=== PATIENT | female | born 1965 | race Caucasian/White ===

== ENCOUNTER 2020-01-16 21:34 | Emergency (ER) | payer OTHER, SELFPAY ==
--- NOTE | ~2020-01-16 | XR_ITS ---
EXAMINATION: XR knee RT 3V EXAM DATE: 01/16/2020 21:55 INDICATION: Swelling for one day, right knee. TECHNIQUE: Three projections of the right knee. Comparison is made to prior examination from 2. FINDINGS: No evidence osteochondral defect or joint body in the right knee joint. There are no acut e fractures or dislocations identified. There is no subcutaneous gas. Small to moderate-sized joint effusion. 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 There are no radiopaque foreign bod ies. IMPRESSION: 1. Small to moderate right knee joint effusion. 2. Mild osteoarthritis. Reviewed, dictated and finalized at location A.
[2020-01-16 21:36] VITALS: BP 133/79; PULSE 95; RESP 16; TEMP 36.6; O2SAT 100
--- NOTE | 2020-01-16 21:44 | ED.EXTPRO ---
HPI - Extremity Problem General Chief complaint: Extremity Problem,Nontraumatic Stated complaint: right leg swelling Time Seen by Provider: 01/16/20 21:39 History of Present Illness HPI Narrative: Right knee swelling since this afternoon. No pain at rest. Painful with ambulation. Feels paresthesia below the knee. No injury. She does have a h/o undiagnosed knee pain. Related Data Home Medications Medication Instructions Recorded Confirmed cetirizine [Zyrtec] 10 mg PO DAILY 06/27/19 06/27/19 guaifenesin [Mucinex] 1,200 mg PO Q12H 06/27/19 06/27/19 montelukast [Singulair] 10 mg PO HS 06/27/19 06/27/19 pseudoephedrine HCl [Sudafed 12 120 mg PO Q12H PRN 06/27/19 06/27/19 Hour] Allergies Allergy/AdvReac Type Severity Reaction Status Date / Time No Known Allergies Allergy Verified 01/16/20 21:45 Review of Systems Review of Systems: All systems reviewed & are unremarkable except as noted in HPI and below PMFSH Family History Family History Other Diabetes mellitus Family history of arthritis Family history of malignant neoplasm Hypertension Social History Social History Alcohol intake: current Gender identity (if verbalized by the patient): Female Exam Const: General: no acute distress and alert Nutritional Appearance: obese Orientation/consciousness: patient oriented x3 HENMT: Head: normal to inspection Resp: Effort & Inspection: normal respiratory effort Skin: General skin exam: normal color Rashes: no rashes Wounds: no wounds Neuro: General: patient oriented x3 Speech: normal speech Extrem: Other: Anterior knee swelling on the right with ballotable effusion Course Vital Signs Vital signs: Vital Signs Temperature 36.6 C 01/16/20 21:36 Pulse Rate 95 01/16/20 21:36 Respiratory Rate 16 01/16/20 21:36 Blood Pressure 133/79 01/16/20 21:36 Pulse Oximetry 100 01/16/20 21:36 Temperature 36.6 C 01/16/20 21:36 Pulse Rate 95 01/16/20 21:36 Respiratory Rate 16 01/16/20 21:36 Blood Pressure 133/79 01/16/20 21:36 Pulse Oximetry 100 01/16/20 21:36 MDM - Extremity (Nontraumatic) MDM Narrative Medical decision making narrative: No sign of infection or inflammation. Moderate effusion present on exam and x-ray. Discharge Plan Discharge Clinical Impression: Effusion of right knee joint Patient Disposition: Home, Self-Care Condition: Stable Instructions: Swollen Knee Joint (ED) Prescriptions: No Action cetirizine [Zyrtec] 10 mg Tablet 10 mg PO DAILY RF: 0 pseudoephedrine HCl [Sudafed 12 Hour] 120 mg Tablet Extended Release 120 mg PO Q12H PRN (Reason: Congestion) RF: 0 montelukast [Singulair] 10 mg Tablet 10 mg PO HS RF: 0 Mucinex 1,200 mg Tablet Extended Release 12hr 1,200 mg PO Q12H RF: 0 amoxicillin-pot clavulanate 875-125 mg tablet 1 tablet PO Q12H Qty: 20 RF: 0 Interventions: Discharge Disposition Last Done: 01/16/20 22:22 IV Stop Time Documented Last Done: 01/16/20 22:23 Follow-up/Referrals: VAUXHALL, [Primary Care Provider] - Discharge Date/Time: 01/16/20 22:23
== END 2020-01-16 22:23 | disposition home or self-care (01) ==
PROVIDERS: Emergency Provider Emergency Medicine
DX: M25.461 Effusion, right knee (principal)
CPT/HCPCS: 73562; 99283

== ENCOUNTER 2020-11-01 12:35 | Emergency (ER) | payer OTHER, SELFPAY ==
[2020-11-01 12:35] VITALS: BP 120/76; PULSE 97; RESP 17; TEMP 36.1; O2SAT 98
--- NOTE | 2020-11-01 12:48 | ED.UPPEXIN ---
HPI - Extremity Injury (Upper) General Chief Complaint: Ear Stated Complaint: Sinus,Ear Time Seen by Provider: 11/01/20 12:35 History of Present Illness HPI narrative: 55-year-old female presents to the [facility] with complaints of sinus pain, pressure and bilateral ear pain. Also reports fevers, congestion, pain on the right ear. Has taken Mucinex and Sudafed stated it worked the first couple weeks however it stopped working. Has a history of seasonal allergies. Patient is a smoker. Also reports a dry cough intermittently. States symptoms have been going on since early October. Has a history of sinus infections and bronchitis Reports that she has had the vaccine on October 14 Covid. Symptoms did start prior to it. States that she has had Covid in June. Related Data Home Medications Medication Instructions Recorded Confirmed cetirizine [Zyrtec] 10 mg PO DAILY 06/27/19 11/01/20 montelukast [Singulair] 10 mg PO HS 06/27/19 11/01/20 Allergies Allergy/AdvReac Type Severity Reaction Status Date / Time No Known Allergies Allergy Verified 11/01/20 12:38 Review of Systems Review of Systems: All systems reviewed & are unremarkable except as noted in HPI and below Constitutional: Constitutional: Reports as per HPI, Reports chills and Denies fever(s) Eyes: Eyes: Reports no additional eye complaints ENT: Reports as per HPI, Reports nasal congestion and Denies sore throat Cardiovascular: Cardiovascular: Reports no additional cardiovascular complaints and Denies chest pain Respiratory: Respiratory: Reports as per HPI, Reports cough, Denies dyspnea and Denies wheezing Gastrointestinal: Gastrointestinal: Reports no additional gastrointestinal complaints, Denies abdominal pain, Denies diarrhea, Denies nausea and Denies vomiting Musculoskeletal: Musculoskeletal: Reports no additional musculoskeletal complaints and Denies back pain Integumentary/Breasts: Skin/Breast: Reports system reviewed and no additional complaints, except as docu and Denies rash Neurologic: Reports system reviewed and no additional complaints, except as documented, Denies headache(s), Denies focal weakness, Denies numbness and Denies weakness Psychiatric: Psychiatric: Reports no additional psychiatric complaints [facility] Family History Family History Other Diabetes mellitus Family history of arthritis Family history of malignant neoplasm Hypertension Social History Social History (Reviewed 11/01/20 @ 16:53 by Alejandra Ge Alcohol intake: current Gender identity (if verbalized by the patient): Female Comments At the time of my signature, I reviewed and agree with the nursing past medical, surgical, social, and family history. There is no relevant family history pertinent to the patient complaint. Exam Const: General: healthy appearing, no acute distress and alert Nutritional Appearance: well nourished and obese Orientation/consciousness: patient oriented x3 HENMT: Head: normal to inspection Ears: hearing grossly normal bilaterally and TM abnormal wth effusion, with fluid behind the TM and with loss of landmarks; not erythematous and not perforated General nose exam: Normal external nose present, Abnormal mucous membranes and turbinates present boggy and erythematous and Nasal discharge present clear Face and sinus: sinus tenderness frontal and maxillary Mouth: Yes Normal oral and palatal mucosa present and Yes lip normal Throat: uvula midline and postnasal drainage Eyes: Pupils: Equal, round and reactive pupils present Neck: Neck: normal visual inspection, no lymphadenopathy and no meningeal signs Chest: Chest palpation & inspection: normal inspection of the chest Resp: Effort & Inspection: normal respiratory effort and no use of accessory muscles Auscultation: clear to auscultation bilaterally, no crackles, no rales, no rhonchi and no wheezes Cardio: Rate: regular rate Rhythm: regul
== END 2020-11-01 12:55 | disposition home or self-care (01) ==
PROVIDERS: Emergency Provider Nurse Practitioner
DX: J01.11 Acute recurrent frontal sinusitis (principal); M17.0 Bilateral primary osteoarthritis of knee
CPT/HCPCS: 99213; G0463

== ENCOUNTER 2021-09-12 16:59 | Emergency (ER) | payer OTHER, SELFPAY ==
[2021-09-12 17:07] VITALS: BP 137/76; PULSE 99; RESP 18; TEMP 36.4; O2SAT 100
--- NOTE | 2021-09-12 17:22 | ED.URI ---
HPI - URI/Sore Throat General Chief Complaint: Upper Respiratory Infection Stated Complaint: nasal congestion Time Seen by Provider: 09/12/21 17:22 Source: patient Mode of arrival: ambulatory Limitations: no limitations History of Present Illness HPI Narrative: 56-year-old female presents with complaint of sinus congestion, sinus headaches, sinus pressure, postnasal drainage for approximately 1 week and is now having pain to bilateral ears for 2 to 3 days. Reports recent body aches, no fever or chills. Denies nausea vomiting diarrhea. Denies cough. Patient is taking Tylenol, ibuprofen, Claritin and Flonase and Sudafed daily. All systems reviewed and negative except as noted above. Related Data Home Medications Medication Instructions Recorded Confirmed cetirizine [Zyrtec] 10 mg PO DAILY 06/27/19 09/12/21 montelukast [Singulair] 10 mg PO HS 06/27/19 09/12/21 Allergies Allergy/AdvReac Type Severity Reaction Status Date / Time No Known Allergies Allergy Verified 09/12/21 17:24 Review of Systems Review of Systems: CONSTITUTIONAL: Denies fever, chills, or sweats. EYES: Denies visual changes, redness, or discharge. ENT: Reports rhinorrhea, congestion, sore throat, or otalgia. CARDIOVASCULAR: Denies chest pain, palpitations, or edema. RESPIRATORY: Denies cough or dyspnea. GASTROINTESTINAL: Denies abdominal pain, nausea, vomiting, or diarrhea. GENITOURINARY: Denies dysuria or hematuria. SKIN: Denies rash or itching. MUSCULOSKELETAL: Denies back pain, joint pain, or myalgia. NEUROLOGIC: Denies headache, numbness, or weakness. PSYCHIATRIC: Denies anxiety or depression. All other systems reviewed are negative, except as documented in HPI. PMFSH Family History Family History Other Diabetes mellitus Family history of arthritis Family history of malignant neoplasm Hypertension Social History Social History Alcohol intake: current Gender identity (if verbalized by the patient): Female Comments At time of signature, agree with nursing past medical, surgical, social and family history. There is no relevant family history pertinent to the presenting complaint. Exam Narrative: GENERAL: This is a well-nourished, well-developed patient, in no apparent distress. HEAD: normocephalic, atraumatic. EYES: PERRL. Sclera clear/white. Vision is grossly intact. EARS: External ears normal, auditory canals clear and without drainage. Fluid to bilateral TMs with retraction, mild erythema. No perforation. NOSE: External nose normal with clear nasal drainage, erythema to naris. Positive for maxillary sinus tenderness. THROAT: Mucous membranes moist, clear postnasal drainage. NECK: Neck supple, non-tender without lymphadenopathy, masses or thyromegaly. CARDIOVASCULAR: Regular rate and rhythm without murmurs, gallops, or rubs. RESPIRATORY: Clear to auscultation. Breath sounds equal bilaterally. No wheezes, rales, or rhonchi. SKIN: warm, Dry, intact with no suspicious lesions or rash, good texture and turgor. NEURO: awake, alert, and oriented to person, place and time. There were no obvious focal neurologic abnormalities. EXTREMITIES: Normal range of motion to all extremities. Course Course Level of Care: Express Care Visit Vital Signs Vital signs: Vital Signs Temperature 36.4 C L 09/12/21 17:07 Pulse Rate 99 09/12/21 17:07 Respiratory Rate 18 09/12/21 17:07 Blood Pressure 137/76 09/12/21 17:07 Pulse Oximetry 100 09/12/21 17:07 Temperature 36.4 C L 09/12/21 17:07 Pulse Rate 99 09/12/21 17:07 Respiratory Rate 18 09/12/21 17:07 Blood Pressure 137/76 09/12/21 17:07 Pulse Oximetry 100 09/12/21 17:07 At time of signature, agree with nursing past medical, surgical, social and family history. There is no relevant family history pertinent to the presenting complaint. MDM - URI/Sore T
== END 2021-09-12 17:32 | disposition home or self-care (01) ==
PROVIDERS: Emergency Provider Nurse Practitioner Family
DX: H65.03 Acute serous otitis media, bilateral (principal); J32.0 Chronic maxillary sinusitis; M17.0 Bilateral primary osteoarthritis of knee
CPT/HCPCS: 99213; G0463